=== PATIENT | male | born 1970 | race Caucasian/White ===

== ENCOUNTER 2016-07-15 14:33 | Emergency (ER) | payer MEDICARE, MEDICAID ==
[2016-07-15] MEDS ORDERED: ONDANSETRON 4 MG VIAL ONE (16:38)
[2016-07-15] MEDS ORDERED: LEVETIRACETAM INJ 1,000 MG in SODIUM CHLORIDE 0.9% 100 ML IV ONE (22:25)
[2016-07-15] MEDS ORDERED: PROMETHAZINE 25 MG/ML VIAL ONE (22:45)
== END 2016-07-15 23:50 | disposition home or self-care (01) ==
LOC: ER 14:33
CPT/HCPCS: 72100 ×2; 96365 ×2; 96375 ×2; 99285; J1953; J2405; J2550; J7050

== ENCOUNTER 2016-07-28 18:33 | Emergency (ER) | payer MEDICARE, MEDICAID ==
[2016-07-28] MEDS ORDERED: ASPIRIN 81 MG CHEW TAB ONE (18:52)
[2016-07-28] MEDS ORDERED: ORPHENADRINE 60 MG/2 ML AMP ONE ×2 (20:24→20:29)
== END 2016-07-28 20:50 | disposition home or self-care (01) ==
LOC: ER 18:33
DX: R07.2 Precordial pain (principal); Z79.899 Other long term (current) drug therapy
CPT/HCPCS: 36415; 71010; 80053; 82550; 83735; 84484; 85025; 85610; 85730; 93005; 96372

== ENCOUNTER 2016-08-01 18:06 | Emergency (ER) | payer MEDICARE, MEDICAID ==
[2016-08-01] MEDS ORDERED: KETOROLAC 30 MG/ML VIAL ONE (19:13)
[2016-08-01] MEDS ORDERED: ONDANSETRON ODT 4 MG TAB ONE (20:23)
[2016-08-01] MEDS ORDERED: CLINDAMYCIN 300 MG in DEXTROSE 5% 50 ML IV ONE (20:40)
== END 2016-08-01 21:45 | disposition home or self-care (01) ==
LOC: ER 18:06
DX: L03.116 Cellulitis of left lower limb (principal); Z79.899 Other long term (current) drug therapy; Z79.01 Long term (current) use of anticoagulants
CPT/HCPCS: 36415; 71010; 73630; 80053; 83880; 85025; 85610; 85730; 93005; 93971; 96365; 96375; 99284; J1885; J7060

== ENCOUNTER 2016-08-16 19:19 | Emergency (ER) | payer MEDICARE, MEDICAID ==
[2016-08-16] MEDS ORDERED: ONDANSETRON 4 MG VIAL ONE (22:28)
[2016-08-16] MEDS ORDERED: DILAUDID 1 MG/ML AMP ONE (22:28)
[2016-08-16] MEDS ORDERED: ENOXAPARIN 120 MG/0.8 ML SYR SUBQ ONE (23:55)
== END 2016-08-17 00:29 | disposition home or self-care (01) ==
LOC: ER 19:19
DX: R07.2 Precordial pain (principal); R07.89 Other chest pain; L03.116 Cellulitis of left lower limb; Z79.899 Other long term (current) drug therapy
CPT/HCPCS: 36415; 71010; 80053; 82550; 83605; 83735; 84484; 85025; 85610; 85730; 93005; 96372; 96374; 96375; 99285; J1170; J2405

== ENCOUNTER 2016-08-19 19:15 | Emergency (ER) | payer MEDICARE, MEDICAID ==
[2016-08-19] MEDS ORDERED: ONDANSETRON 4 MG VIAL ONE (23:08)
[2016-08-19] MEDS ORDERED: MORPHINE 4 MG/ML SYR ONE (23:09)
== END 2016-08-20 01:06 | disposition home or self-care (01) ==
LOC: ER 19:15
DX: R60.0 Localized edema (principal); L03.115 Cellulitis of right lower limb; Z79.899 Other long term (current) drug therapy; Z79.01 Long term (current) use of anticoagulants
CPT/HCPCS: 36415; 71010; 73630; 80053; 82553; 83880; 84484; 85025; 85610; 85730; 93005; 96374; 96375; 99284; J2270; J2405